=== PATIENT | female | born 2000 | race Hispanic/Latino ===

== ENCOUNTER 2022-02-19 02:58 | Outpatient (CLI) | payer OTHER ==
[2022-02-19 04:18] VITALS: BP 128/85
== END 2022-02-19 04:45 | disposition home or self-care (01) ==
LOC: TRG 02:58 → APU 03:06 → TRG 04:45
PROVIDERS: ATTEND Student in an Organized Health Care Education/Training Program
DX: Z34.93 Encounter for supervision of normal pregnancy, unspecified, third trimester (principal); Z3A.39 39 weeks gestation of pregnancy
CPT/HCPCS: 59025

== ENCOUNTER 2022-02-20 06:42 | Inpatient (IN) | payer OTHER ==
[2022-02-20] MEDS ORDERED: CARBOPROST TROMETHAMINE 250 MCG/1 ML INJ IM PRN (08:26)
[2022-02-20] MEDS ORDERED: NALOXONE 0.4 MG/1 ML INJ IV PRN (08:26)
[2022-02-20] MEDS ORDERED: LIDOCAINE (2%) 20 MG/1 ML VIAL 20 ML MDV INFILTRATI ONE (08:26)
[2022-02-20] MEDS ORDERED: MINERAL OIL 30 ML ORAL LIQD PO PRN (08:26)
[2022-02-20] MEDS ORDERED: METHYLERGONOVINE MALEATE 0.2 MG/ML VIAL IM PRN (08:26)
[2022-02-20] MEDS ORDERED: fentaNYL 100 MCG/2 ML INJ IV PRN (08:26)
[2022-02-20] MEDS ORDERED: LOPERAMIDE 2 MG CAP PO PRN (08:26)
[2022-02-20] MEDS ORDERED: ONDANSETRON 4 MG/2 ML INJ IV PRN ×3 (08:26→21:46)
[2022-02-20] MEDS ORDERED: ACETAMINOPHEN 325 MG TAB PO PRN (08:26)
[2022-02-20] MEDS ORDERED: AMPICILLIN/NS 2 GM/100 ML 2 GM/100 ML BAG IV ONE (08:26)
[2022-02-20] MEDS ORDERED: TERBUTALINE 1 MG/1 ML INJ SUB-Q PRN (08:26)
[2022-02-20] MEDS ORDERED: PROMETHAZINE 25 MG TAB PO PRN ×2 (08:26→21:46)
[2022-02-20] MEDS ORDERED: OXYTOCIN 10 UNIT/1 ML INJ IM PRN (08:26)
[2022-02-20] MEDS ORDERED: miSOPROStol 200 MCG TAB PR PRN (08:26)
[2022-02-20] MEDS ORDERED: BUTORPHANOL 2 MG/1 ML INJ IV PRN (08:26)
[2022-02-20] MEDS ORDERED: ePHEDrine SULFATE 50 MG/1 ML INJ IV PRN ×2 (08:26→13:41)
[2022-02-20] MEDS ORDERED: LACTATED RINGERS 1,000 ML IV SCH (08:30)
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
[2022-02-20] MEDS ORDERED: OXYTOCIN DRIP 30 UNITS/500 ML BAG IV SCH ×3 (09:00→21:46)
[2022-02-20 09:41] LABS: Hematocrit 33.5 % (30.3-42.9); Hemoglobin 11.9 gm/dl (10.1-14.3); Mean Corpuscular HGB Conc 35 % (30-34); Mean Corpuscular Volume 97 fl (79-97); Platelet Count 206 K/mm3 (140-440); Red Blood Count 3.46 M/mm3 (3.65-5.03); Red Cell Distribution Width 13.4 % (13.2-15.2)
[2022-02-20] MEDS ORDERED: ALUM-MAG HYDROXIDE-SIMETHICONE 200-200-20MG/5ML ORAL LIQD 30 ML PO PRN (09:49)
--- NOTE | 2022-02-20 11:29 | Ultrasound Report ---
ULTRASOUND OBSTETRIC LIMITED INDICATION / CLINICAL INFORMATION: presentation. Clinical Gestational Age (GA) in weeks, days: 40 weeks 0 days TECHNIQUE: Transabdominal. COMPARISON: None available. FINDINGS: Single live intrauterine in cephalic presentation. heart rate measures 142 bpm. Signer Name: Deejay Joya MD Signed: 02/20/2022 11:24 AM Workstation Name: [email or web address]
[2022-02-20] MEDS ORDERED: NalbUPHINE 10 MG/1 ML INJ IV PRN (13:41)
[2022-02-20] MEDS ORDERED: NALOXONE 2 MG/2 ML INJ IV PRN (13:41)
[2022-02-20] MEDS ORDERED: LACTATED RINGERS 250 ML IV SOLN IV ONE (13:41)
[2022-02-20] MEDS ORDERED: diphenhydrAMINE 50 MG/ML VIAL IV PRN (13:41)
[2022-02-20] MEDS ORDERED: fentaNYL-BUPIV 2 MCG/ML-0.125% 200 MCG/100 ML BAG EPIDURAL SCH (14:00)
--- NOTE | 2022-02-20 14:11 | Progress Note ---
Labor Epidural - Labor Epidural Start Time: 13:53 Stop Time: 14:04 Performed by:: ERIC JULIO Procedure: Patient is requesting epidural for labor and pain. H&P, labs were reviewed. Patient IDed, all questions and concerns were answered, and consent was signed. Timeout was performed at bedside. Patient in sitting position. Sterile prep and drape was performed. 3ml of 1% lidocaine skin wheal at L[3]- L [4]. 17- gauge Tuohy epidural needle was advanced to loss of resistance with air technique 7cm. Negative CSF negative blood. Epidural catheter advanced to [12] centimeters. [negative] Aspiration [negative] test dose. Sterile dressing applied. Patient tolerated procedure.
--- NOTE | 2022-02-20 14:11 | Anesthesia Consultation ---
Anesthesia Consult and Med Hx Date of service: 02/20/22 - Airway Anesthetic Teeth Evaluation: Good ROM Head & Neck: Adequate Mental/Hyoid Distance: Adequate Mallampati Class: Class II Intubation Access Assessment: Probably Good - Pulmonary Exam CTA: Yes - Cardiac Exam Cardiac Exam: RRR - Pre-Operative Health Status ASA Pre-Surgery Classification: ASA2 Proposed Anesthetic Plan: Epidural - Pulmonary Hx Smoking: No Hx Asthma: No Hx Sleep Apnea: No - Cardiovascular System Hx Hypertension: No Hx Heart Attack/AMI: No Hx Angina: No - Central Nervous System Hx Seizures: No Hx Psychiatric Problems: No - Gastrointestinal Hx Gastroesophageal Reflux Disease: No - Endocrine Hx Renal Disease: No Hx Liver Disease: No Hx Insulin Dependent Diabetes: No Hx Non-Insulin Dependent Diabetes: No Hx Hypothyroidism: No Hx Hyperthyroidism: No - Hematic Hx Anemia: No Hx Sickle Cell Disease: No - Other Systems Hx Alcohol Use: No
[2022-02-20] MEDS: AMPICILLIN/NS 1 GM/50 ML 1 GM/50 ML BAG IV SCH ×2 (14:20→17:28)
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
[2022-02-20 17:51] LABS: Amphetamine Screen,Urine Negative; Benzodiazepines Screen,Urine Negative; Cannabinoid Screen,Urine Negative; Cocaine Screen,Urine Negative; Methadone Screen,Urine Negative; Opiate Screen,Urine Negative
--- NOTE | 2022-02-20 18:59 | Procedure Note ---
OB Delivery Note - Delivery Date of Delivery: 02/20/22 [employer] Bl[employer]: HIMA LOTT (Melly Lopes [facility]) Estimated blood loss: other (QBL 648 ml) - Vaginal Delivery presentation: vertex Delivery position: OP Intrapartum events: PROM->1hr before delivery, other(please specify) ( arrhythmia noted and heard on monitor during labor. ) Delivery augmentation: pitocin Delivery monitor: external FHT, external uterine, internal uterine Route of delivery: Delivery placenta: spontaneous Episiotomy: none Delivery laceration: none, other (left labial abrasion) Anesthesia: epidural Delivery comments: SVE: c/c/+2. Pushing initiated with contractions, excellent maternal effort with of vigorous female following <15 min of pushing. Baby girl Ata vigorously stimulated and placed skin to skin with maternal abdomen. Delayed cord clamping x2 minutes, 3 vc doubly clamped and cut by pt's mother. APGARS 8/8. Pitocin initiated. Intact delivery of Valles placenta. Brisk bleeding noted after delivery of placenta. Cytotec, 800 mcg, administered CA. Fundus firm, midline, 2 below umbilicus, bleeding moderate, 1 grape sized clot noted following uterine expression. Counts performed x2 and correct x2. Mother and infant left in stable condition in care of RN. QBL: 648. - A at 1 minute: 8 at 5 minutes: 8 Infant Gender: Female ("Ata", 7-9)
[2022-02-20 19:59] LABS: Hematocrit 33.2 % (30.3-42.9); Hemoglobin 11.6 gm/dl (10.1-14.3); Mean Corpuscular HGB Conc 35 % (30-34); Mean Corpuscular Volume 97 fl (79-97); Red Blood Count 3.41 M/mm3 (3.65-5.03); Red Cell Distribution Width 13.4 % (13.2-15.2)
[2022-02-20 20:06] LABS: Platelet Count 172 K/mm3 (140-440)
[2022-02-20 20:12] LABS: Alanine Aminotransferase 31 units/L (7-56)
[2022-02-20 20:25] LABS: Uric Acid 6.1 mg/dL (3.5-7.6)
[2022-02-20] MEDS ORDERED: MAGNESIUM SULFATE 4 GM/100 ML BAG IV ONE (21:10)
[2022-02-20] MEDS ORDERED: ACETAMINOPHEN 500 MG TAB PO PRN (21:12)
[2022-02-20] MEDS ORDERED: miSOPROStol 100 MCG TAB PR PRN (21:46)
[2022-02-20] MEDS ORDERED: MAGNESIUM HYDROXIDE (MOM) ORAL LIQD UDC PO PRN (21:46)
[2022-02-20] MEDS ORDERED: PROMETHAZINE 25 MG RECT SUPP PR PRN (21:46)
[2022-02-20] MEDS ORDERED: LANOLIN/ZINC/DIMETHICONE (LANSINOH) 7 GM TP PRN ×2 (21:46)
[2022-02-20] MEDS ORDERED: diphenhydrAMINE 25 MG CAP PO PRN (21:46)
[2022-02-20] MEDS ORDERED: WITCH HAZEL/ GLYCERIN PAD TP PRN (21:46)
[2022-02-20] MEDS ORDERED: BENZOCAINE/MENTHOL 20/0.5% TOP SPRAY 56 GM TP PRN (21:46)
[2022-02-20] MEDS ORDERED: oxyCODONE /ACETAMINOPHEN 5-325MG TAB PO PRN (21:46)
[2022-02-20] MEDS ORDERED: IBUPROFEN 800 MG TAB PO ONE (21:55)
[2022-02-20] MEDS: IBUPROFEN 800 MG TAB PO SCH (22:03)
[2022-02-20] MEDS: MAGNESIUM SULFATE 40GM/1000ML 40 GM/1,000 ML BAG IV SCH (22:06)
[2022-02-21] MEDS: IBUPROFEN 800 MG TAB PO SCH ×2 (03:52→22:23)
[2022-02-21] MEDS ORDERED: LACTATED RINGERS 1,000 ML IV SCH (08:45)
[2022-02-21] MEDS: ACETAMINOPHEN 500 MG TAB PO PRN (08:50)
[2022-02-21 09:37] LABS: Hematocrit 30.5 % (30.3-42.9); Hemoglobin 10.5 gm/dl (10.1-14.3)
[2022-02-21] MEDS: DOCUSATE SODIUM 100 MG CAP PO SCH ×2 (10:10→22:22)
[2022-02-21] MEDS: PRENATAL VIT27-FE FUMARATE-FOLIC ACID VIT TAB PO SCH (10:10)
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
--- NOTE | 2022-02-21 11:03 | Post Anesthesia Evaluation ---
- Post Anesthesia Evaluation Patient Participated: Yes Airway Patent: Yes Stable Respiratory Function: Yes Nausea/Vomiting: No Temp > 96.8F: Yes Pain Manageable: Yes Adequeate Hydration: Yes Anesthesia Complications: No Block Receding Appropriately: Yes Patient on Ventilator: No
[2022-02-21] MEDS: MAGNESIUM SULFATE 40GM/1000ML 40 GM/1,000 ML BAG IV SCH (19:51)
[2022-02-22] MEDS ORDERED: TETANUS,DIPH,PERTUSS(ACELL) VACCINE 0.5 ML SYRINGE IM ONE (06:00)
[2022-02-22] MEDS: IBUPROFEN 800 MG TAB PO SCH ×3 (06:34→18:02)
--- NOTE | 2022-02-22 07:44 | Progress Note ---
Assessment and Plan Patient talking with mother @ bedside, reports feeling well. denies SUERO, visual changes or epigastric pain. Fundus firm, lochia scant, pt is bottle feeding baby.post delivery H&H 10.5/30.5, VSSAF (b/p range 114-139/60's-80) Anticipate d/c home this afternoon if pt remains stable. - Patient Problems (1) Normal vaginal delivery Current Visit: Yes Status: Acute (2) Pre-eclampsia affecting puerperium Onset Date: ~02/20/22 Current Visit: Yes Status: Acute Subjective - Subjective Date of service: 02/22/22 Principal diagnosis: s/p , mag infusion, pre eclampsia Patient reports: appetite normal, voiding normally, pain well controlled, ambulating normally, no dizzy ambulation, no nauseated, no other (no SUERO, visual changes or epigastric pain) [place]: doing well, bottle feeding Objective - Vital Signs Latest vital signs: Vital Signs Temp Pulse Resp BP BP Pulse Ox Pulse Ox 02/22/22 04:29 98.2 F 70 18 129/80 97 02/21/22 23:29 98.6 F 73 18 126/78 98 02/21/22 22:22 73 139/75 02/21/22 22:17 79 99 02/21/22 22:12 83 99 02/21/22 22:07 77 99 02/21/22 22:02 84 99 02/21/22 22:00 98.7 F 18 L 18 139/75 99 02/21/22 21:57 81 99 02/21/22 21:54 73 139/75 02/21/22 21:52 74 99 02/21/22 21:47 80 95 02/21/22 21:45 71 94 02/21/22 21:42 72 99 02/21/22 21:37 79 99 02/21/22 21:36 83 94 02/21/22 21:32 76 97 02/21/22 21:31 78 94 02/21/22 21:27 82 97 02/21/22 21:24 71 136/73 02/21/22 21:22 81 97 02/21/22 21:17 78 98 02/21/22 21:12 78 96 02/21/22 21:07 83 97 02/21/22 21:02 78 98 02/21/22 20:57 76 98 05 20:54 78 134/88 05 20:52 86 98 05 20:47 77 98 05 20:42 78 100 05 20:37 75 99 05 20:32 85 99 99 02/21/22 20:27 77 98 05 20:24 75 121/66 05 20:22 73 96 05 20:17 82 99 05 20:12 80 99 05 20:07 74 98 05 20:02 82 100 02/21/22 19:57 77 100 05 19:54 98.8 F 79 18 136/85 136/85 99 02/21/22 19:52 79 99 05 19:47 80 99 02/21/22 19:42 85 98 02/21/22 19:37 82 99 02/21/22 19:32 74 98 05 19:27 75 99 05 19:24 70 136/93 05 19:22 77 99 02/21/22 19:17 85 93 02/21/22 19:15 74 92 05 19:12 68 99 02/21/22 19:07 84 98 02/21/22 19:05 81 93 05 19:02 77 98 02/21/22 18:57 80 98 05 18:54 78 135/83 05 18:52 79 92 05 18:47 77 98 05 18:42 84 98 05 18:38 79 93 05 18:37 76 99 05 18:32 78 98 05 18:27 77 99 05 18:24 80 131/74 05 18:22 76 98 05 18:17 80 98 05 18:12 84 99 05 18:07 84 98 05 18:02 85 98 05 17:57 87 97 05 17:54 83 129/75 05 17:52 76 97 05 17:47 84 99 05 17:42 79 98 05 17:37 83 97 05 17:32 81 98 05 17:27 82 98 05 17:24 86 143/84 02/21/22 17:22 74 98 05 17:17 85 99 02/21/22 17:15 97.6 F 02/21/22 17:12 88 98 02/21/22 17:07 86 99 05 17:02 86 98 02/21/22 16:57 84 98 02/21/22 16:54 83 139/88 02/21/22 16:52 75 99 05 16:47 76 98 02/21/22 16:42 88 97 02/21/22 16:37 84 98 02/21/22 16:32 71 97 02/21/22 16:27 70 97 02/21/22 16:24 86 131/79 02/21/22 16:22 71 96 02/21/22 16:17 73 96 05 16:12 72 96 05 16:07 77 96 05 16:02 75 96 05 15:57 74 97 05 15:54 78 119/66 05 15:52 71 97 05 15:47 68 98 02/21/22 15:42 84 97 02/21/22 15:37 70 98 02/21/22 15:32 73 97 05 15:27 74 97 05 15:24 82 127/76 05 15:22 72 96 05 15:17 70 97 05 15:12 72 97 05 15:07 71 96 05 15:02 81 97 05 14:57 71 97 05 14:54 78 129/79 05 14:52 84 98 05 14:47 82 98 05 14:42 79 96 05 14:37 77 97 05 14:32 83 97 05 14:27 79 99 05 14:24 71 133/75 05 14:22 76 99 05 14:17 75 98 05 14:12 82 97 02/21/22 14:07 84 98 02/21/22 14:02 82 98 05 13:57 80 98 02/21/22 13:54 82 138/87 02/21/22 13:52 81 98 02/21/22 13:47 81 98 02/21/22 13:42 82 97 02/21/22 13:37 79 99 05 13:32 81 97 02/21/22 13:27 87 98 02/21/22 13:22 80 98 02/21/22 13:17 84 98 02/21/22 13:12 91 H 98 02/21/22 13:07 77 98 05 13:02 85 99 02/21/22 12:57 85 98 02/21/22 12:54 81 130/81 02/21/22 12:52 79 97 02/21/22 12:47 85 97 02/21/22 12:42 85 97 02/21/22 12:37 83 96 02/21/22 12:32 86 98 02/21/22 12:27 73 97 02/21/22 12:26 84 94 02/21/22 12:24 78 131/72 05 12:22 79 97 02/21/22 12:17 75 96 02/21/22 12:12 78 96 02/21/22 12:07 77 96 02/21/22 12:02 74 96 05 11:57 77 96 05 11:54 75 142/68 05 11:52 75 97 02/21/22 11:47 75 97 02/21/22 11:42 79 98 02/21/22 11:37 76 97 02/21/22 11:32 74 97 05 11:27 73 96 05 11:24 71 120/69 05 11:22 74 96 05 11:17 69 96 05 11:12 72 96 05 11:07 73 97 05 11:02 69 97 05 10:57 72 97 05 10:54 75 126/75 05 10:52 75 96 05 10:47 76 96 05 10:42 85 95 0508 10:38 72 126/68 05 10:37 71 97 0508 10:32 76 96 02/21/22 10:27 81 97 0508 10:22 75 97 05 10:17 77 97 0508 10:12 81 96 0508 10:10 81 135/95 0508 10:07 90 97 05 10:03 83 94 05 10:02 75 98 05 09:57 80 97 05 09:54 85 135/95 05 09:52 81 97 05 09:47 83 97 02/21/22 09:42 82 97 02/21/22 09:37 95 H 98 02/21/22 09:32 78 96 02/21/22 09:27 77 97 05 09:24 73 138/83 05 09:22 75 98 02/21/22 09:17 76 97 02/21/22 09:12 79 99 98 02/21/22 09:07 77 98 02/21/22 09:02 75 98 05 08:58 97.5 F L 73 128/67 98 02/21/22 08:57 76 97 05 08:54 70 128/67 05 08:52 79 98 05 08:47 81 98 05 08:42 74 98 05 08:37 72 96 05 08:32 73 97 05 08:27 78 96 05 08:24 81 135/90 05 08:22 79 96 02/21/22 08:17 73 98 0508 08:12 78 98 0508 08:07 74 97 05 08:02 83 97 0508 07:57 79 98 0508 07:54 75 149/86 05 07:52 80 97 05 07:47 73 97 Intake and Output 05/08/22 05/08/22 05/09/22 15:59 23:59 07:59 Intake Total 1480 600 Output Total 2400 3400 600 Balance -2400 -1920 0 Intake: IV 1000 MAGNESIUM SULFATE 40GM/ 1000 1000ML 40 gm In 1,000 ml @ 2 GM/HR 50 mls/hr IV DIRECT EDE Rx#:[id number] Oral 480 Intake, Free Water 600 Output: Urine 2400 3400 600 Indwelling Catheter 2400 3400 Void 600 Other: Total, Intake Amount 480 Total, Output Amount 1000 500 600 - Exam Breasts: Present: normal Cardiovascular: Present: Regular rate Lungs: Present: Clear to auscultation, Normal air movement Abdomen: Present: normal appearance, soft Uterus: Present: normal, firm, fundal height below umbilicus Extremities: Present: normal Deep Tendon Reflex Grade: Normal +2 - Labs Labs: Abnormal lab results 02/21/22 02/21/22 Range/Units 12:50 18:29 Magnesium 4.80 H 4.60 H (1.7-2.3) mg/dL
[2022-02-22] MEDS: PRENATAL VIT27-FE FUMARATE-FOLIC ACID VIT TAB PO SCH (10:40)
[2022-02-22] MEDS: DOCUSATE SODIUM 100 MG CAP PO SCH ×2 (10:40→21:14)
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
--- NOTE | 2022-02-22 16:24 | Event Note ---
Date: 02/22/22 elevated b/p 150's/80-90's. Labetalol increased to 200mg PO BID, will reeval for d/c home tomorrow.
[2022-02-23] MEDS: IBUPROFEN 800 MG TAB PO SCH ×2 (00:37→06:08)
[2022-02-23] MEDS: DOCUSATE SODIUM 100 MG CAP PO SCH (09:25)
[2022-02-23] MEDS: PRENATAL VIT27-FE FUMARATE-FOLIC ACID VIT TAB PO SCH (09:25)
[2022-02-23] MEDS: ACETAMINOPHEN 500 MG TAB PO PRN (16:34)
[2022-02-23 18:16] VITALS: BP 140/82
--- NOTE | 2022-02-23 18:23 | Event Note ---
Date: 02/23/22 (1819) Order for discharge re-entered for this time. Pt continues to deny chest pain, SOB, vision changes, and RUQ. Reports feeling increased anxiety as she is anxious to be discharged home and has not been taking her prescribed Remeron q night at bedtime since being admitted to hospital 4 days ago. This afternoon BP ranges from: 140-168/82-97. Last BP 140/82 (MAP 105). 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 Already has BP cuff at home, knows how to take BP, and will take it q AM and q PM. Pt scheduled for BP check tomorrow w/ Dr Estrada @1400 in the [place] office. Also has telehealth psychiatry appt scheduled tomorrow @1300. Strict return precautions reviewed with pt. Pt's mother at bedside throughout discharge teaching.
== END 2022-02-23 19:14 | disposition home or self-care (01) | DRG 807 ==
LOC: TRG 06:42 → APU 06:44 → TRG 09:16 → LD 09:17 → OB 02-21 22:55
PROVIDERS: ADMIT Obstetrics & Gynecology; ATTEND Obstetrics & Gynecology
PROC: 10E0XZZ Delivery of Products of Conception, External Approach (ICD-10-PCS; principal; 2022-02-20)
PROC: 3E0R3BZ Introduction of Anesthetic Agent into Spinal Canal, Percutaneous Approach (ICD-10-PCS; 2022-02-20)
PROC: 00HU33Z Insertion of Infusion Device into Spinal Canal, Percutaneous Approach (ICD-10-PCS; 2022-02-20)
PROC: 10H07YZ Insertion of Other Device into Products of Conception, Via Natural or Artificial Opening (ICD-10-PCS; 2022-02-20)
PROC: 3E0234Z Introduction of Serum, Toxoid and Vaccine into Muscle, Percutaneous Approach (ICD-10-PCS; 2022-02-22)
DX: O42.02 Full-term premature rupture of membranes, onset of labor within 24 hours of rupture (principal); Z37.0 Single live birth; O76 Abnormality in fetal heart rate and rhythm complicating labor and delivery; O99.824 Streptococcus B carrier state complicating childbirth; Z3A.40 40 weeks gestation of pregnancy; O14.95 Unspecified pre-eclampsia, complicating the puerperium; O99.334 Smoking (tobacco) complicating childbirth; Z20.822 Contact with and (suspected) exposure to COVID-19; Z88.8 Allergy status to other drugs, medicaments and biological substances; Z23 Encounter for immunization; Z87.891 Personal history of nicotine dependence; O71.89 Other specified obstetric trauma
CPT/HCPCS: 36415; 76815; 80307; 82565; 83615; 83735; 84112; 84450; 84460; 84550; 85014; 85018; 85027; 86592; 86850; 86900; 86901; 99211; G0378; J3490; G0463; J0290; J2405; J2590; J3010; J3475; J7120; U0003